=== PATIENT | male | born 1970 | race Caucasian/White ===

== ENCOUNTER 2025-02-13 12:50 | Outpatient (CLI) | payer MEDICARE, SELFPAY ==
--- NOTE | 2025-02-13 13:38 | DI.RAD_ITS ---
Exam(s) XR THUMB RT EXAM: XR THUMB RT CLINICAL HISTORY: PAIN RT THUMB M79.644. TECHNIQUE: 2D digital imaging was performed. Three views. COMPARISON: No exams were available for comparison FINDINGS: BONES: No acute fracture is present. No bony destructive lesion is seen. JOINTS: No dislocation present. Mild degenerative changes at the 1st carpal metacarpal joint. SOFT TISSUE: Normal. IMPRESSION: No evidence of acute fracture, dislocation, or subluxation. DATA REPOSITORY: RADIATION DOSE DELIVERED:
--- NOTE | 2025-02-13 13:38 | DI.RAD_ITS ---
Exam(s) XR FOREARM LT EXAM: XR FOREARM LT CLINICAL HISTORY: PAIN LEFT FOREARM M79.632. TECHNIQUE: 2D digital imaging was performed. Two views. COMPARISON: CR XR WRIST LT COMP NAVICULAR from 02/13/2025 FINDINGS: BONES: Nondisplaced fracture at the radial neck. No bony destructive lesion is seen. Olecranon spur. JOINTS: Elbow joint effusion. SOFT TISSUE: Normal. IMPRESSION: Nondisplaced fracture the radial neck. DATA REPOSITORY: RADIATION DOSE DELIVERED:
--- NOTE | 2025-02-13 13:38 | DI.RAD_ITS ---
Exam(s) XR WRIST LT COMP NAVICULAR EXAM: XR WRIST LT COMP NAVICULAR CLINICAL HISTORY: PAIN LEFT WRIST M25.532 FOOSH 02/10/25. TECHNIQUE: 2D digital imaging was performed. Four views of the wrist COMPARISON: CR XR THUMB RT from 02/13/2025 FINDINGS: BONES: No acute fracture is present. Mild deformity of the distal radius likely secondary to old fracture. No bony destructive lesion is seen. JOINTS: The carpal bones are normally aligned. Degenerative changes at the 1st carpal metacarpal joint. SOFT TISSUE: Normal. IMPRESSION: Unremarkable radiographs of the left wrist. DATA REPOSITORY: RADIATION DOSE DELIVERED:
== END 2025-02-13 13:10 ==
PROVIDERS: PCP Nurse Practitioner Family; Visit Provider Nurse Practitioner Family
DX: M25.532 Pain in left wrist (principal); M79.644 Pain in right finger(s); M79.632 Pain in left forearm; S52.135A Nondisplaced fracture of neck of left radius, initial encounter for closed fracture; X58.XXXA Exposure to other specified factors, initial encounter
CPT/HCPCS: 73090; 73110; 73140

== ENCOUNTER 2025-02-28 10:39 | Outpatient (CLI) | payer MEDICARE, SELFPAY ==
--- NOTE | 2025-02-28 09:50 | DI.RAD_ITS ---
Exam(s) XR ELBOW LT COMPLETE EXAM: XR ELBOW LT COMPLETE CLINICAL HISTORY: LEFT ELBOW INJURY. TECHNIQUE: 2D digital imaging was performed of the left elbow. Four images were obtained. AP, lateral and oblique views were obtained. COMPARISON: CR XR FOREARM LT from 02/13/2025 FINDINGS: BONES: There is again seen a left radial neck fracture. There is minimal displacement present. No bony destructive lesion is seen. There is an enthesophyte at the posterior olecranon. There is spurring at the coronoid process. JOINTS: The elbow is normally aligned. No joint effusion is seen. SOFT TISSUE: Normal. IMPRESSION: Minimally displaced left radial neck fracture. DATA REPOSITORY: RADIATION DOSE DELIVERED:
== END 2025-02-28 10:40 | disposition home or self-care (01) ==
LOC: DIORS 10:39
PROVIDERS: PCP Nurse Practitioner Family; Referring Provider Nurse Practitioner Family; Visit Provider Student in an Organized Health Care Education/Training Program
DX: S52.132A Displaced fracture of neck of left radius, initial encounter for closed fracture (principal); W19.XXXA Unspecified fall, initial encounter
CPT/HCPCS: 99203; 73080

== ENCOUNTER 2025-04-04 10:15 | Outpatient (CLI) | payer MEDICARE, SELFPAY ==
--- NOTE | 2025-04-04 09:15 | DI.RAD_ITS ---
Exam(s) XR ELBOW LT LIMITED EXAM: XR ELBOW LT LIMITED INDICATION: F/U FRACTURE. COMPARISON: CR XR ELBOW LT COMPLETE from 02/28/2025 TECHNIQUE: 2D digital imaging was performed. Two views. FINDINGS: There has been no change in the alignment of the radial neck fracture. There is increased callus formation is seen around the fracture site consistent with some interval healing. A joint effusion remains visible. DATA REPOSITORY: RADIATION DOSE DELIVERED:
== END 2025-04-04 10:16 | disposition home or self-care (01) ==
LOC: DIORS 10:16
PROVIDERS: PCP Internal Medicine; Referring Provider Nurse Practitioner Family; Visit Provider Student in an Organized Health Care Education/Training Program
DX: S52.132A Displaced fracture of neck of left radius, initial encounter for closed fracture (principal); X58.XXXA Exposure to other specified factors, initial encounter
CPT/HCPCS: 99212; 73070